=== PATIENT | male | born 1995 ===

== ENCOUNTER 2021-10-22 09:04 | Emergency (ER) | payer SELFPAY ==
[~2021-10-22] VITALS: Ht 172.7 cm; Wt 76.2 kg
[2021-10-22 09:19] VITALS: BP 129/53
[2021-10-22] MEDS ORDERED: ACYCLOVIR 400 MG TAB PO ONE (09:45)
[2021-10-22] MEDS ORDERED: predniSONE 20 MG TAB PO ONE (09:45)
[2021-10-22] MEDS ORDERED: PRED20TA2 PO (10:10)
[2021-10-22] MEDS ORDERED: ACYC-161 PO (10:10)
== END 2021-10-22 11:28 | disposition home or self-care (01) ==
LOC: ER 09:09
DX: R51.9 Headache, unspecified (principal)
CPT/HCPCS: 70450; 93005; 99284; J7512